=== PATIENT | male | born 2000 | race Caucasian/White ===

== ENCOUNTER 2022-06-28 07:03 | Emergency (ER) | payer OTHER | END 2022-06-28 09:03 | disposition home or self-care (01) | LOC: ED 07:03 | DX: R11.2 Nausea with vomiting, unspecified (principal); R19.7 Diarrhea, unspecified | CPT/HCPCS: 99283; A9270 ==

== ENCOUNTER 2022-10-25 18:29 | Emergency (ER) | payer BC ==
[~2022-10-25] VITALS: Ht 185.4 cm; Wt 81.2 kg
[2022-10-25] MEDS ORDERED: OMEPRAZOLE40 MG PO (18:44)
== END 2022-10-25 22:26 | disposition home or self-care (01) ==
LOC: ED 18:29
DX: R10.9 Unspecified abdominal pain (principal); E86.0 Dehydration; F12.90 Cannabis use, unspecified, uncomplicated
CPT/HCPCS: 36415; 80053; 81003; 83690; 85025; 96361; 96374; 96375; 99284-25; C9113; J0780; J1885; J2060; J2405; J7030

== ENCOUNTER 2022-10-27 19:49 | Emergency (ER) | payer BC ==
[~2022-10-27] VITALS: Ht 185.4 cm; Wt 83.0 kg
[~2022-10-27 19:49] MED LIST: OMEPRAZOLE40 MG PO
--- OUTSIDE RECORDS SUMMARY | 2022-10-27 19:56 | XMS ---
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 Emily VISIT COUNT ([address] 3 [facility] TOTAL 3 NOTE: Visits indicate total known visits. ED/UCC VISIT TRACKING (12 MO.) 10/27/2022 19:49 [facility] [place] TYPE: Emergency COMPLAINT: - VOMITING 10/25/2022 18:30 [facility] [place] TYPE: Emergency COMPLAINT: - N/V 06/28/2022 07:03 [facility] [place] TYPE: Emergency COMPLAINT: - NAUSEA DIAGNOSES: - Diarrhea, unspecified - Nausea with vomiting, unspecified INPATIENT VISIT TRACKING (12 MO.) No inpatient visits to display in this time frame [email or web address]
[2022-10-27] MEDS ORDERED: ONDANSETRON ODT8 MG PO (20:15)
[2022-10-27] MEDS ORDERED: ONDANSETRON ODT4 MG PO (22:57)
[2022-10-28] MEDS ORDERED: ONDANSETRON HCL4 MG PO (18:10)
[2022-10-28] MEDS ORDERED: CARAFATE1 GM PO (21:37)
[2022-10-28] MEDS ORDERED: REGLAN10 MG PO (21:37)
[2022-10-28] MEDS ORDERED: PROMETHEGAN25 MG PR (21:37)
[2022-10-28] MEDS ORDERED: PROTONIX20 MG PO (21:37)
== END 2022-10-27 23:23 | disposition home or self-care (01) ==
LOC: ED 19:49
DX: R11.15 Cyclical vomiting syndrome unrelated to migraine (principal); Z79.899 Other long term (current) drug therapy
CPT/HCPCS: 36415; 80053; 81003; 83690; 83735; 85025; 96361; 96374; 96375; 99284-25; J2060; J2270; J2405; J7030

== ENCOUNTER 2022-10-28 16:32 | Emergency (ER) | payer BC ==
[~2022-10-28] VITALS: Ht 185.4 cm; Wt 83.0 kg
[~2022-10-28 16:32] MED LIST changes: +ONDANSETRON ODT4 MG PO; +ONDANSETRON ODT8 MG PO
--- OUTSIDE RECORDS SUMMARY | 2022-10-28 16:38 | XMS ---
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 Emily VISIT COUNT (12 MO.) 4 [facility] TOTAL 4 NOTE: Visits indicate total known visits. ED/UCC VISIT TRACKING (12 MO.) 10/28/2022 16:32 [facility] [place] TYPE: Emergency COMPLAINT: - VOMITING 10/27/2022 19:49 [facility] [place] TYPE: Emergency COMPLAINT: - VOMITING 10/25/2022 18:30 [facility] [place] TYPE: Emergency COMPLAINT: - N/V 06/28/2022 07:03 [facility] [place] TYPE: Emergency COMPLAINT: - NAUSEA DIAGNOSES: - Nausea with vomiting, unspecified - Diarrhea, unspecified INPATIENT VISIT TRACKING (12 MO.) No inpatient visits to display in this time frame [id number]
[2022-10-28] MEDS ORDERED: ONDANSETRON HCL4 MG PO (18:10)
[2022-10-28] MEDS ORDERED: CARAFATE1 GM PO (21:37)
[2022-10-28] MEDS ORDERED: PROTONIX20 MG PO (21:37)
[2022-10-28] MEDS ORDERED: REGLAN10 MG PO (21:37)
[2022-10-28] MEDS ORDERED: PROMETHEGAN25 MG PR (21:37)
== END 2022-10-28 22:18 | disposition home or self-care (01) ==
LOC: ED 16:32
DX: K29.70 Gastritis, unspecified, without bleeding (principal)
CPT/HCPCS: 36415; 74177; 80053; 83690; 85025; 96375; 99284-25; A9270; C9113; J0780; J1170; J1790; J2060; J2405; J7030

== ENCOUNTER 2022-11-14 19:34 | Emergency (ER) | payer BC ==
[~2022-11-14] VITALS: Ht 185.4 cm; Wt 76.4 kg
[~2022-11-14 19:34] MED LIST changes: +CARAFATE1 GM PO; +ONDANSETRON HCL4 MG PO; +PROMETHEGAN25 MG PR; +PROTONIX20 MG PO; +REGLAN10 MG PO
--- OUTSIDE RECORDS SUMMARY | 2022-11-14 19:38 | XMS ---
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 EDmitri VISIT COUNT (12 MO.) 5 [facility] TOTAL 5 NOTE: Visits indicate total known visits. ED/UCC VISIT TRACKING (12 MO.) 11/14/2022 19:35 [facility] [place] TYPE: Emergency COMPLAINT: - N/V 10/28/2022 16:32 [facility] [place] TYPE: Emergency COMPLAINT: - VOMITING DIAGNOSES: - Gastritis, unspecified, without bleeding - Nausea 10/27/2022 19:49 [facility] [place] TYPE: Emergency COMPLAINT: - VOMITING DIAGNOSES: - Other mcfp (current) drug therapy - Vomiting, unspecified - Cyclical vomiting syndrome unrelated to migraine 10/25/2022 18:30 [facility] [place] TYPE: Emergency COMPLAINT: - N/V DIAGNOSES: - Cannabis use, unspecified, uncomplicated - Unspecified abdominal pain - Dehydration 06/28/2022 07:03 [facility] [place] TYPE: Emergency COMPLAINT: - NAUSEA DIAGNOSES: - Nausea with vomiting, unspecified - Diarrhea, unspecified INPATIENT VISIT TRACKING (12 MO.) No inpatient visits to display in this time frame [email or web address]
[2022-11-14] MEDS ORDERED: LORAZEPAM0.5 MG PO (19:50)
[2022-11-14] MEDS ORDERED: AMITRIPTYLINE H75 MG PO (19:50)
[2022-11-14] MEDS ORDERED: PROMETHEGAN25 MG PR (20:48)
== END 2022-11-14 21:11 | disposition home or self-care (01) ==
LOC: ED 19:34
DX: R11.2 Nausea with vomiting, unspecified (principal)
CPT/HCPCS: 36415; 80053; 83735; 85025; 96361; 96374; 96375; 99284-25; J1790; J2060; J7121

== ENCOUNTER 2022-12-09 10:27 | Emergency (ER) | payer BC ==
[~2022-12-09] VITALS: Ht 185.4 cm; Wt 76.4 kg
[~2022-12-09 10:27] MED LIST changes: +AMITRIPTYLINE H75 MG PO; +LORAZEPAM0.5 MG PO
--- OUTSIDE RECORDS SUMMARY | 2022-12-09 10:29 | XMS ---
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 Emily VISIT COUNT (12 MO.) 6 [facility] TOTAL 6 NOTE: Visits indicate total known visits. ED/C VISIT TRACKING (12 MO.) 12/09/2022 10:27 [facility] [place] TYPE: Emergency COMPLAINT: - RT HAND INJURY 11/14/2022 19:35 [facility] [place] TYPE: Emergency COMPLAINT: - N/V DIAGNOSES: - Nausea with vomiting, unspecified 10/28/2022 16:32 [facility] [place] TYPE: Emergency COMPLAINT: - VOMITING DIAGNOSES: - Gastritis, unspecified, without bleeding - Nausea 10/27/2022 19:[address] [facility] 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 [place] TYPE: Emergency COMPLAINT: - NAUSEA DIAGNOSES: - Nausea with vomiting, unspecified - Diarrhea, unspecified INPATIENT VISIT TRACKING (12 MO.) No inpatient visits to display in this time frame [id number]
== END 2022-12-09 15:17 | disposition home or self-care (01) ==
LOC: ED 10:27
DX: S60.221A Contusion of right hand, initial encounter (principal); W22.8XXA Striking against or struck by other objects, initial encounter; F30.9 Manic episode, unspecified; Z79.899 Other long term (current) drug therapy
CPT/HCPCS: 36415; 73130; 80053; 84443; 85025; 90471; 90714; 99283-25; G0480

== ENCOUNTER 2022-12-10 19:13 | Emergency (ER) | payer BC, OTHER ==
[~2022-12-10] VITALS: Ht 185.4 cm; Wt 76.4 kg
--- OUTSIDE RECORDS SUMMARY | 2022-12-10 19:16 | XMS ---
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 Emily VISIT COUNT (12 MO.) 7 [facility] TOTAL 7 NOTE: Visits indicate total known visits. ED/C VISIT TRACKING (12 MO.) 12/10/2022 19:14 [facility] [place] TYPE: Emergency COMPLAINT: - MEDICAL CLEARANCE 12/09/2022 10:27 [facility] [place] TYPE: Emergency COMPLAINT: - RT HAND INJURY 11/14/2022 19:35 [facility] [place] TYPE: Emergency COMPLAINT: - N/V DIAGNOSES: - Nausea with vomiting, unspecified 10/28/2022 16:32 [facility] [place] TYPE: Emergency COMPLAINT: - VOMITING DIAGNOSES: - Nausea - Gastritis, unspecified, without bleeding 10/27/2022 19:[address] [facility] 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 [facility] [place] TYPE: Emergency COMPLAINT: - N/V DIAGNOSES: - Unspecified abdominal pain - Dehydration - Cannabis use, unspecified, uncomplicated 06/28/2022 07:03 [facility] [place] TYPE: Emergency COMPLAINT: - NAUSEA DIAGNOSES: - Diarrhea, unspecified - Nausea with vomiting, unspecified INPATIENT VISIT TRACKING (12 MO.) No inpatient visits to display in this time frame [email or web address]
== END 2022-12-16 09:50 | disposition home or self-care (01) ==
LOC: ED 19:13
DX: F29 Unspecified psychosis not due to a substance or known physiological condition (principal); E86.0 Dehydration; Z79.899 Other long term (current) drug therapy
CPT/HCPCS: 36415; 80048; 80053; 84443; 85025; 96372; 99284; A9270; G0480; J2060; J7030; U0003